=== PATIENT | female | born 1950 | race Caucasian/White ===

== ENCOUNTER 2020-08-15 18:08 | Inpatient (IN) | payer BC, OTHER ==
[~2020-08-15] VITALS: Ht 170.2 cm; Wt 59.4 kg
[2020-08-15] MEDS ORDERED: OLANZAPINE 10 MG VIAL IM ONE ×3 (18:15→21:15)
--- NOTE | 2020-08-15 18:19 | NUR ---
"141A with nurse Zaida assigned for this patient." per MHU staff Clare.
--- NOTE | 2020-08-15 18:47 | NUR ---
PT WAS EVALUATED BY DR ESQUIVEL.
--- NOTE | 2020-08-15 20:33 | NUR ---
Report given to Manjit SUNG
[2020-08-15] MEDS ORDERED: MAGNESIUM HYDROXIDE 30 ML LIQUID UDC PO PRN (21:15)
[2020-08-15] MEDS ORDERED: MAG HYDROX/AL HYDROX/SIMETH 30 ML LIQUID UDC PO PRN (21:15)
[2020-08-15] MEDS ORDERED: [UNRECOGNIZED DRUG - OTHER] (21:30)
[2020-08-15] MEDS ORDERED: no home meds (21:30)
--- NOTE | 2020-08-15 21:30 | NUR ---
Admission procedures done; kept safe and comfortable;
--- NOTE | 2020-08-15 22:00 | NUR ---
Jen has been very agitated; Zyprexa given IM to her as one time order; safety maintained.
[2020-08-16] MEDS: LORAZEPAM 1 MG TABLET PO PRN ×2 (04:51→20:14)
--- NOTE | 2020-08-16 05:23 | NUR ---
pt woke up and went to bathroom with assist; pt appears anxious; ativan 0.5 mg given PO; continue to monitor;
--- NOTE | 2020-08-16 05:28 | NUR ---
Slept 4 hours without interruption.
[2020-08-16 07:30] VITALS: BP 153/83
[2020-08-16 08:11] LABS: BILIRUBIN,TOTAL 0.7 mg/dL (0.2-1.0); POTASSIUM 3.8 mmol/L (3.5-5.1); TOTAL PROTEIN, SERUM 7.4 g/dL (6.4-8.2)
[2020-08-16] MEDS ORDERED: OLANZAPINE 5 MG TABLET PO PRN (12:00)
[2020-08-16] MEDS ORDERED: OLANZAPINE 10 MG VIAL IM ONE (14:15)
--- NOTE | 2020-08-16 14:30 | NUR ---
PATIENT BECAME RESTLESS AND TRIED TO GET OUT OF RADHA-CHAIR. TRIED TO WALK PT TO THE BATHROOM, THREE PERSON ASSIST. PT TRIED TO SWING AT STAFF WHILE ASSISTING HER TO THE BATHROOM. CONTACTED DR. MCCLELLAN FOR CHEMICAL RESTRAINT. DR. MCCLELLAN ORDERED ZYPREXA 5MG IM ONE TIME DOSE. ADMINISTERED DOSE. PUT PATIENT BACK TO RADHA-CHAIR. WILL CONTINUE TO MONITOR.
[2020-08-16 17:04] LABS: BASOPHILS % (AUTO) 0.4 % (0.0-2.0); EOSINOPHILS % (AUTO) 0.1 % (0.0-7.0); HEMOGLOBIN 15.6 g/dL (10.9-14.3); LYMPHOCYTES # (AUTO) 1.7 K/uL (20.0-40.0); LYMPHOCYTES % (AUTO) 18.7 % (20.5-51.5); MEAN CORPUSCULAR HEMOGLOBIN 29.9 uug (24.7-32.8); MEAN CORPUSCULAR HGB CONC 34 g/dL (32.3-35.6); MEAN CORPUSCULAR VOLUME 88.2 fL (75.5-95.3); MONOCYTES # (AUTO) 0.8 K/uL (2.0-10.0); MONOCYTES % (AUTO) 8.3 % (0.0-11.0); NEUTROPHILS # (AUTO) 6.7 K/uL (1.8-8.9); NEUTROPHILS % (AUTO) 72.5 % (38.5-71.5); PLATELET COUNT (AUTO) 325 K/uL (179-408); RED BLOOD CELL COUNT(AUTO) 5.21 MIL/uL (3.63-4.92); WHITE BLOOD COUNT (AUTO) 9.2 K/uL (3.8-11.8)
[2020-08-16 20:00] VITALS: BP 100/68
--- NOTE | 2020-08-16 20:00 | NUR ---
received patient in the hallway. She is sitting in a nkechi chair near the nursing station. She is noted A/o x 1 (name only) confused, restless, tangental. she is unable to have a meaningful conversation with this marketing copywriter. patient was given Ativan 1mg PO PRN for anxiety and agitation. V/S stable. She is reassured for her safety. safety and fall precaution in place. will continue to monitor.
[2020-08-16] MEDS ORDERED: OLANZAPINE 2.5 MG TABLET PO SCH (21:00)
[2020-08-16] MEDS ORDERED: DIVALPROEX SPRINKLE 125 MG CAP.SPRINK PO SCH (21:00)
--- NOTE | 2020-08-16 22:30 | NUR ---
Attempted to put patient in her bed. She became restless, hyperverbal, unable to stay in bed. She agreed to sit on a taylor chair. She was given Restoril 7.5 mg PO PRN. will continue to monitor.
[2020-08-16] MEDS: TEMAZEPAM 7.5 MG CAPSULE PO PRN (22:55)
[2020-08-17] MEDS: LORAZEPAM 1 MG TABLET PO PRN ×2 (03:49→20:47)
--- NOTE | 2020-08-17 07:05 | NUR ---
patient slept for approx. 5 hrs through the night. she wax noted less combative less irritable. will continue to monitor
[2020-08-17 07:30] VITALS: BP 139/79
--- NOTE | 2020-08-17 12:31 | NUR ---
Pt still sleeping. Pt arousable by touch. Held Zyprexa for sedation.
[2020-08-17] MEDS ORDERED: OLANZAPINE 2.5 MG TABLET PO SCH (13:00)
[2020-08-17] MEDS ORDERED: BENZTROPINE MESYLATE 2 MG/2 ML AMPUL IM ONE (15:00)
[2020-08-17] MEDS ORDERED: HALOPERIDOL LACTATE 5 MG/1 ML VIAL IM ONE (15:00)
[2020-08-17] MEDS ORDERED: LORAZEPAM 2 MG/1 ML VIAL IM ONE (15:00)
--- NOTE | 2020-08-17 15:00 | NUR ---
Pt awaken. Pt started walking in hallway. Pt was incontinent of urine and diaper was wet. MICA SPREADER attempted to clean pt up and change diaper. pt became combative attempting to hit staff, yelling at top of her voice. Pt delirous confused and disoriented. Attempted to decerlate situation but unsuccessfu reoriented pt to time and place unsuccessful. Pt behavior unchanged. Called dr murray and notified of behavior. New orders received and carried out. Will monitor patient.
--- NOTE | 2020-08-17 16:00 | NUR ---
VSS 110/76-hr 91- t 97.1- resp 18. Pt on Kacy Chair and eating pt much calmer after injections ordered given @ 1505. Pt ate about 15% of her snacks and water given. NO coughing noted. No aspiration noted.
[2020-08-17 16:11] VITALS: BP 110/76
[2020-08-17] MEDS ORDERED: OLANZAPINE 5 MG TABLET PO SCH ×2 (17:00→20:00)
--- NOTE | 2020-08-17 18:26 | NUR ---
UA received and sent to lab.
[2020-08-17 18:41] LABS: *BILIRUBIN,URIN 1+ (NEGATIVE); *BLOOD, URINE NEGATIVE (NEGATIVE); *CLARITY,URINE CLEAR (CLEAR); *COLOR,URINE YELLOW (YELLOW); *KETONES,URINE TRACE (NEGATIVE); *UROBILINOGEN,URINE 0.2 E.U./dl (NORMAL); LEUKOCYTE ESTERASE ,URINE NEGATIVE (NEGATIVE); NITRITE, URINE NEGATIVE (NEGATIVE); PH,URINE 5.5 (5.0-8.0); UGLUCOSE NEGATIVE (NEGATIVE)
--- NOTE | 2020-08-17 20:00 | NUR ---
Received patient in the hallway sitting in a nkechi chair. she is noted confused, disorganized speech, restless. Affect is flat, mood is irritable. She is noted with impaired judgment and insight into her admission to MHU. patient is unable to have a meaningful conversation with this magazine writer. Patient was able to comply with [facility] medication at this time. sacks and PO fluids were given to patient. She is reassured for for her safety. safety and fall precaution in place. V/S stable at this time. will continue to monitor.
[2020-08-17 20:07] VITALS: BP 132/72
--- NOTE | 2020-08-17 20:48 | NUR ---
Patient continue restless, banging table, unable to redirect. pt is hard to redirect. She is confused, unable to have a meaningful conversation with this life insurance underwriter. Ativan 1mg PO PRN given. will continue to monitor.
[2020-08-17] MEDS: ACETAMINOPHEN 325 MG TABLET PO PRN (22:56)
[2020-08-17] MEDS: TEMAZEPAM 7.5 MG CAPSULE PO PRN (23:46)
[2020-08-18] MEDS: LORAZEPAM 1 MG TABLET PO PRN ×2 (03:02→11:08)
[2020-08-18 06:59] LABS: BASOPHILS % (AUTO) 0.4 % (0.0-2.0); EOSINOPHILS % (AUTO) 0.3 % (0.0-7.0); HEMATOCRIT 42.8 % (31.2-41.9); HEMOGLOBIN 14.6 g/dL (10.9-14.3); LYMPHOCYTES # (AUTO) 1.2 K/uL (20.0-40.0); LYMPHOCYTES % (AUTO) 17.6 % (20.5-51.5); MEAN CORPUSCULAR HEMOGLOBIN 30.3 uug (24.7-32.8); MEAN CORPUSCULAR HGB CONC 34 g/dL (32.3-35.6); MEAN CORPUSCULAR VOLUME 88.7 fL (75.5-95.3); MONOCYTES # (AUTO) 0.6 K/uL (2.0-10.0); MONOCYTES % (AUTO) 9.3 % (0.0-11.0); NEUTROPHILS % (AUTO) 72.4 % (38.5-71.5); PLATELET COUNT (AUTO) 293 K/uL (179-408); RED BLOOD CELL COUNT(AUTO) 4.83 MIL/uL (3.63-4.92); WHITE BLOOD COUNT (AUTO) 6.9 K/uL (3.8-11.8)
[2020-08-18 07:16] LABS: BILIRUBIN,TOTAL 0.6 mg/dL (0.2-1.0); CREATININE 1.1 mg/dL (0.6-1.3); POTASSIUM 4.1 mmol/L (3.5-5.1); TOTAL PROTEIN, SERUM 7.6 g/dL (6.4-8.2)
[2020-08-18 07:30] VITALS: BP 162/73
[2020-08-18] MEDS ORDERED: OLANZAPINE 2.5 MG TABLET PO SCH (08:00)
[2020-08-18] MEDS: OLANZAPINE 5 MG TABLET PO SCH ×3 (08:12→20:07)
--- NOTE | 2020-08-18 10:21 | NUR ---
REMY Initial Discharge Plan: Patient is currently homeless with a friend living out of a truck camper, Nick ([phone]). Patient will return to their camper vehicle upon discharge. Patient's brother Earnest ([phone]) is also involved in the patient's care. REMY will continue to work with patient, family, and MD to ensure a safe and proper discharge plan.
[2020-08-18 10:25] VITALS: BP 142/72
--- NOTE | 2020-08-18 10:29 | NUR ---
Firearms Report: Director Of Automation completed and submitted a DOJ firearms report for 5150 grave disability certifications. A copy of report has been placed in patient chart.
--- NOTE | 2020-08-18 10:48 | NUR ---
REMY Family Contact: REMY spoke with patient's friend Nick ([phone]) and discussed treatment and discharge plan. Nick provided collateral information (see sw's assessment). Nick stated he will pecan picker the patient upon discharge. REMY also spoke with patient's brother, Earnest ([phone]) who is also involved in the patient's treatment and discharge plan. Earnest confirmed patient lives with a truck camper with Nick. Earnest stated he helps with the patient's finances and takes the patient to the bank.
--- NOTE | 2020-08-18 11:10 | NUR ---
UR NOTE: Auth: [id number] SW called and left a voicemail and faxed patient's clinicals to Vp Analysis Andria ( ) from [facility]: [facility].
[2020-08-18 15:25] VITALS: BP 169/73
[2020-08-18] MEDS: OXCARBAZEPINE 300 MG TABLET PO SCH (16:10)
[2020-08-18 16:41] VITALS: BP 130/69
--- NOTE | 2020-08-19 05:55 | NUR ---
GPS: Remain uncooperative with care.compliant with meds. occ banging table, unable to redirect. pt is hard to redirect. confused, unable to have a meaningful conversation with this staff. slept 4 hrs through the night. will continue to monitor.
[2020-08-19 07:30] VITALS: BP 141/76
[2020-08-19] MEDS: LORAZEPAM 1 MG TABLET PO PRN ×2 (07:48→17:45)
[2020-08-19] MEDS: OLANZAPINE 5 MG TABLET PO SCH ×3 (07:54→20:47)
[2020-08-19] MEDS: OXCARBAZEPINE 300 MG TABLET PO SCH ×2 (08:03→17:45)
--- NOTE | 2020-08-19 14:29 | NUR ---
UR NOTE: Auth: [id number] REMY spoke with Marketing Co Op Andria ( ) from [facility] and confirmed patient's authorization. Andria stated she only requires clinicals faxed two times a week. Review clinicals due .
--- NOTE | 2020-08-19 15:16 | NUR ---
patient is alert to name only. she is aggressive, combative, and resistive to care. patient speaks to herself and unknown others. she is unable to maintain linear and logical conversation, unable to answer staff questions. patient just sits and speaks and mumbles to herself. patient is adherent with medication after multiple attempts at prompting and education. patient is unable to participate in unit groups and milieu. patient instructed to communicate her needs appropriately and educated about impulse control, but unable to participate and verbalize understanding.
[2020-08-19 16:00] VITALS: BP 136/87
[2020-08-19 20:29] VITALS: BP 140/91
[2020-08-19] MEDS: ATORVASTATIN 20 MG TABLET PO SCH (20:47)
[2020-08-19] MEDS: ACETAMINOPHEN 325 MG TABLET PO PRN (20:47)
[2020-08-19] MEDS: TEMAZEPAM 7.5 MG CAPSULE PO PRN (21:41)
[2020-08-20] MEDS: LORAZEPAM 1 MG TABLET PO PRN ×4 (00:20→23:30)
--- NOTE | 2020-08-20 05:46 | NUR ---
Received patient in the Kacy chair, banging on the table. Straight Pin Making Machine Operator attempted to redirect and reorient patient but patient is confused and unable to engage in any conversation or answer any questions. When assisted to the bathroom, it required multiple staff members, patient was combative and unsteady. A snack was provided as well as fluid, maximum assistance needed with oral intake .Patient was given PM care and put in bed. Bed alarm on. Total sleep hours so far is 5.15. Patient turned and repositioned for comfort. Continuing to monitor for safety and behavior escalation. No acute distress noted at this time.
[2020-08-20 06:53] LABS: BASOPHILS % (AUTO) 0.4 % (0.0-2.0); EOSINOPHILS # (AUTO) 0.1 K/uL (0.0-0.7); HEMATOCRIT 41.2 % (31.2-41.9); HEMOGLOBIN 13.9 g/dL (10.9-14.3); LYMPHOCYTES % (AUTO) 36.7 % (20.5-51.5); MEAN CORPUSCULAR HEMOGLOBIN 30.1 uug (24.7-32.8); MEAN CORPUSCULAR HGB CONC 34 g/dL (32.3-35.6); MEAN CORPUSCULAR VOLUME 89.1 fL (75.5-95.3); MONOCYTES # (AUTO) 0.5 K/uL (2.0-10.0); MONOCYTES % (AUTO) 9.1 % (0.0-11.0); NEUTROPHILS # (AUTO) 2.8 K/uL (1.8-8.9); NEUTROPHILS % (AUTO) 52.8 % (38.5-71.5); PLATELET COUNT (AUTO) 272 K/uL (179-408); RED BLOOD CELL COUNT(AUTO) 4.63 MIL/uL (3.63-4.92); WHITE BLOOD COUNT (AUTO) 5.4 K/uL (3.8-11.8)
[2020-08-20 07:04] LABS: BILIRUBIN,TOTAL 0.7 mg/dL (0.2-1.0); MAGNESIUM 2.4 mg/dL (1.8-2.4); POTASSIUM 4.4 mmol/L (3.5-5.1); TOTAL PROTEIN, SERUM 7.2 g/dL (6.4-8.2)
[2020-08-20 07:30] VITALS: BP 130/77
[2020-08-20] MEDS: OXCARBAZEPINE 300 MG TABLET PO SCH ×3 (08:09→16:35)
[2020-08-20] MEDS: OLANZAPINE 5 MG TABLET PO SCH ×3 (08:09→20:25)
--- NOTE | 2020-08-20 12:08 | NUR ---
REMY PC Hearing: Patient had 5250 probable cause hearing today and it was upheld for grave disability and danger to self.
--- NOTE | 2020-08-20 12:35 | NUR ---
REMY Family Contact: REMY also spoke with patient's brother, Earnest ([phone]) and discussed discharge plan for possible board and care facility. REMY sent patient referral to [facility] board and care data coordinator ([phone]) and she will be speaking with Earnest for further assessment.
[2020-08-20] MEDS: ENSURE ENLIVE (VAN) 240 ML LIQUID PO SCH ×2 (13:00→16:36)
--- NOTE | 2020-08-20 14:29 | NUR ---
Board and Care Placement: SW received call back from [facility] medical records coordinator ([phone]) who stated patient is accepted at [facility] board and care [address] [place] [phone] ([phone]).
[2020-08-20 16:09] VITALS: BP 144/84
[2020-08-20] MEDS: ATORVASTATIN 20 MG TABLET PO SCH (20:24)
[2020-08-20 21:02] VITALS: BP 128/77
--- NOTE | 2020-08-20 21:04 | NUR ---
PATIENT RECEIVED UP IN RADHA CHAIR. PATIENT ALERT/ORIENTED X1 WITH CONFUSION, DISORGANIZED, AND DISORIENTED. PATIENT COMPLAINT WITH MEDICATION. PATIENT IN NO APPARENT DISTRESS AND NO AGGRESSIVE BEHAVIOR NOTED. PATIENT IS EASILY IRRITABLE AND AGITATED. SAFE ENVIRONMENT PROVIDED, FREQUENT ROUNDING, AND CLUTTER FREE ENVIRONMENT. BED IN LOWEST POSITION, BED LOCKED, AND BED ALARM ON WHILE IN BED.
[2020-08-20] MEDS: TEMAZEPAM 7.5 MG CAPSULE PO PRN (22:15)
[2020-08-21 07:30] VITALS: BP 141/78
[2020-08-21] MEDS: ENSURE ENLIVE (VAN) 240 ML LIQUID PO SCH ×3 (09:00→17:36)
[2020-08-21] MEDS: OXCARBAZEPINE 300 MG TABLET PO SCH ×3 (09:00→17:34)
[2020-08-21] MEDS ORDERED: BENZTROPINE MESYLATE 2 MG/2 ML AMPUL IM ONE (09:20)
[2020-08-21] MEDS ORDERED: HALOPERIDOL LACTATE 5 MG/1 ML VIAL IM ONE (09:20)
[2020-08-21] MEDS ORDERED: LORAZEPAM 2 MG/1 ML VIAL IM ONE (09:20)
--- NOTE | 2020-08-21 09:30 | NUR ---
Gps/Ophthalmic Technician Apprentice- Patient was agitated, restless, disrobing , hitting staff during her care, unable to co contract for safety, confused, fidgety , assisted to eat breakfast, refused. Dr Preston was called by Form GraderSelena Montero, orders received.
--- NOTE | 2020-08-21 09:30 | NUR ---
PATIENT AGGRESSIVE,HITTING STAFF, BANGING HER TABLE, PATIENT UNABLE TO CONTRACT SAFETY, UNABLE TO REDIRECT PATIENT CONFUSED AND DISORIENTED WITH POOR INSIGHT, CALLED DR. MCCLELLAN REGARDING PATIENTS BEHAVIOR, WITH EMERGENCY MEDICATION ORDER , HALDOL 5MG, COGENTIN 1MG, AND ATIVAN 2MG TO BE GIVEN IM , PATIENT TOLERATED THE MEDICATION, MONITORED FOR SAFETY
--- NOTE | 2020-08-21 10:30 | NUR ---
Gps/Marketing Technology Specialist- Patient's boyfriend called , verbalized frustration, that every time he called patient appeared to be sleeping all the time. Claimed he is working on trying to moved patient out of here. Instructed to talked to the Nursing Admin .
--- NOTE | 2020-08-21 10:50 | NUR ---
UR NOTE: Auth: [id number] REMY faxed patient's clinicals to Software Quality Specialist Andria ( ) from [facility].
[2020-08-21 16:00] VITALS: BP 135/81
[2020-08-21] MEDS ORDERED: HALOPERIDOL LACTATE 10 MG/5 ML ORAL SOLUTION UDC PO SCH (17:00)
[2020-08-21] MEDS: HALOPERIDOL LACTATE 10 MG/5 ML ORAL SOLUTION UDC PO SCH ×2 (17:33→21:12)
[2020-08-21] MEDS: LORAZEPAM 0.5 MG TABLET PO SCH ×2 (17:35→21:11)
[2020-08-21] MEDS: BENZTROPINE MESYLATE 0.5 MG TABLET PO SCH (17:35)
--- NOTE | 2020-08-21 18:10 | NUR ---
Gps/Production Statistical Clerk- Kept patient by the Nurses station for safety, patient gets restless, fidgety, tends to disrobed , hitting table with her fist., discouraged from doing so. Assisted with her meals. , poor intake, offered fluids.
[2020-08-21 20:07] VITALS: BP 128/77
[2020-08-21] MEDS: ATORVASTATIN 20 MG TABLET PO SCH (21:12)
[2020-08-22] MEDS: TEMAZEPAM 7.5 MG CAPSULE PO PRN ×2 (01:17→22:43)
[2020-08-22] MEDS: LORAZEPAM 1 MG TABLET PO PRN (04:33)
--- NOTE | 2020-08-22 05:52 | NUR ---
Jen slept 4.3 hours; periods of agitation; banging on taylor chair; ativan given; able to ta ke meds with ice cream; safety maintained; needs attended.
[2020-08-22 07:30] VITALS: BP 156/89
[2020-08-22] MEDS: LORAZEPAM 0.5 MG TABLET PO SCH ×4 (08:00→21:00)
[2020-08-22] MEDS: HALOPERIDOL LACTATE 10 MG/5 ML ORAL SOLUTION UDC PO SCH ×4 (08:00→21:00)
[2020-08-22] MEDS: BENZTROPINE MESYLATE 0.5 MG TABLET PO SCH ×3 (09:00→17:00)
[2020-08-22] MEDS: OXCARBAZEPINE 300 MG TABLET PO SCH (09:00)
[2020-08-22] MEDS: ENSURE ENLIVE (VAN) 240 ML LIQUID PO SCH ×3 (09:00→17:00)
[2020-08-22] MEDS ORDERED: LORAZEPAM 2 MG/1 ML VIAL IM ONE (09:30)
[2020-08-22] MEDS ORDERED: HALOPERIDOL LACTATE 5 MG/1 ML VIAL IM ONE (09:30)
[2020-08-22] MEDS ORDERED: BENZTROPINE MESYLATE 2 MG/2 ML AMPUL IM ONE (09:30)
--- NOTE | 2020-08-22 09:30 | NUR ---
Gps/Chief Pharmacist-started to get agitated, hitting table, sliding off her chair, agitated, disrobing , refusing to take po. meds, refusing breakfast, yelling. .Curb SupervisorSelena Montero called Psychiatrist , orders received.
[2020-08-22 13:12] LABS: POTASSIUM 4.4 mmol/L (3.5-5.1)
[2020-08-22 13:18] LABS: BILIRUBIN,TOTAL 0.6 mg/dL (0.2-1.0); MAGNESIUM 2.6 mg/dL (1.8-2.4); TOTAL PROTEIN, SERUM 8.1 g/dL (6.4-8.2)
[2020-08-22 13:21] LABS: BASOPHILS % (AUTO) 0.4 % (0.0-2.0); EOSINOPHILS % (AUTO) 0.1 % (0.0-7.0); HEMATOCRIT 46.1 % (31.2-41.9); HEMOGLOBIN 15.5 g/dL (10.9-14.3); LYMPHOCYTES % (AUTO) 10.7 % (20.5-51.5); MEAN CORPUSCULAR HEMOGLOBIN 29.9 uug (24.7-32.8); MEAN CORPUSCULAR HGB CONC 34 g/dL (32.3-35.6); MEAN CORPUSCULAR VOLUME 88.9 fL (75.5-95.3); MONOCYTES # (AUTO) 0.7 K/uL (2.0-10.0); MONOCYTES % (AUTO) 7.7 % (0.0-11.0); NEUTROPHILS # (AUTO) 7.4 K/uL (1.8-8.9); NEUTROPHILS % (AUTO) 81.1 % (38.5-71.5); PLATELET COUNT (AUTO) 309 K/uL (179-408); RED BLOOD CELL COUNT(AUTO) 5.19 MIL/uL (3.63-4.92); WHITE BLOOD COUNT (AUTO) 9.1 K/uL (3.8-11.8)
--- NOTE | 2020-08-22 14:22 | NUR ---
REMY [facility] Report: Thank you for submitting a Protective Services Report. Your report (Intake ID [id number]) was successfully submitted on 08/22/2020 at 2:22 PM. Addendum: 08/22/20 at 1424 by MYRIAM ROSARIO A copy of the report has been placed in the patient's chart.
--- NOTE | 2020-08-22 14:30 | NUR ---
Gps/Custom Bow Maker-Sleeping , remains up in her taylor-chair, awakened couple of times to be fed, patient was fidgety and uncooperative .
[2020-08-22 15:02] VITALS: BP 98/78
--- NOTE | 2020-08-22 15:56 | NUR ---
Gps/Cell Maker- Remains up on her taylor-chair, observed restlessness, fluids offered, assisted with her meals , patient refused. Continue to monitor patient , safety emphasized .
--- NOTE | 2020-08-22 17:00 | NUR ---
Gps/environmental test technician- Toileted, 3 staff assisting , uncooperative during her care, refusing to stand up, does not follow simple directions. Rigt elbow abrasion, cleansed redressed, , pt. kept removing , rubbing off from the tray .
[2020-08-22 20:09] VITALS: BP 134/83
[2020-08-22] MEDS: ATORVASTATIN 20 MG TABLET PO SCH (21:00)
--- NOTE | 2020-08-23 05:45 | NUR ---
GPS: Remain confused and disoriented. patient slept for approx. 5.15 hrs through the night after sleeping meds given. patient noted less combative less irritable. resting in bed comfortably. will continue to monitor
[2020-08-23 07:30] VITALS: BP 115/50
--- NOTE | 2020-08-23 07:30 | NUR ---
Received patient in the Kacy chair close to the nursing station for safety. Patient is alert and oriented times 1. Patient responsive to name only. Patient is confused and disoriented to time and place. Compliant with medications. Patient is easily irritable and gets agitated. Needs complete assistance with ADLs. Safety precautions are in place. Will continue to monitor.
[2020-08-23] MEDS: HALOPERIDOL LACTATE 10 MG/5 ML ORAL SOLUTION UDC PO SCH ×4 (08:33→20:19)
[2020-08-23] MEDS: LORAZEPAM 0.5 MG TABLET PO SCH ×4 (08:33→20:19)
[2020-08-23] MEDS: ENSURE ENLIVE (VAN) 240 ML LIQUID PO SCH ×3 (08:36→17:12)
[2020-08-23] MEDS: BENZTROPINE MESYLATE 0.5 MG TABLET PO SCH ×3 (08:36→17:11)
[2020-08-23 16:00] VITALS: BP 140/93
[2020-08-23] MEDS: busPIRone 5 MG TABLET PO SCH ×2 (17:11→20:19)
[2020-08-23 20:00] VITALS: BP 140/77
[2020-08-23] MEDS: ATORVASTATIN 20 MG TABLET PO SCH (20:19)
[2020-08-24] MEDS: LORAZEPAM 1 MG TABLET PO PRN ×2 (05:16→18:54)
--- NOTE | 2020-08-24 05:21 | NUR ---
GPS: Gps/Evp Operations- Patient sitting up in taylor chair become agitated, hitting table, sliding off her chair, disrobing , ativan 1 mg po given for agitation.
--- NOTE | 2020-08-24 06:13 | NUR ---
GPS: Remain confused and disoriented. patient slept for approx. 4.45 hrs through the night . patient noted combative irritable. ativan 1 mg po given and effective.assisted with shower this morning. patient resting in taylor chair near nursing station. will continue to monitor
[2020-08-24 07:30] VITALS: BP 125/89
[2020-08-24] MEDS: ACETAMINOPHEN 325 MG TABLET PO PRN ×2 (08:02→18:54)
[2020-08-24] MEDS: LORAZEPAM 0.5 MG TABLET PO SCH (08:17)
[2020-08-24] MEDS: BENZTROPINE MESYLATE 0.5 MG TABLET PO SCH ×3 (08:17→16:22)
[2020-08-24] MEDS: busPIRone 5 MG TABLET PO SCH ×4 (08:17→20:21)
[2020-08-24] MEDS: HALOPERIDOL LACTATE 10 MG/5 ML ORAL SOLUTION UDC PO SCH ×4 (08:17→20:21)
[2020-08-24] MEDS: ENSURE ENLIVE (VAN) 240 ML LIQUID PO SCH ×3 (08:18→16:23)
[2020-08-24 13:07] LABS: BASOPHILS % (AUTO) 0.4 % (0.0-2.0); EOSINOPHILS % (AUTO) 0.1 % (0.0-7.0); HEMATOCRIT 47.6 % (31.2-41.9); LYMPHOCYTES # (AUTO) 1.3 K/uL (20.0-40.0); LYMPHOCYTES % (AUTO) 12.7 % (20.5-51.5); MEAN CORPUSCULAR HEMOGLOBIN 30.3 uug (24.7-32.8); MEAN CORPUSCULAR HGB CONC 34 g/dL (32.3-35.6); MEAN CORPUSCULAR VOLUME 90.1 fL (75.5-95.3); MONOCYTES # (AUTO) 0.7 K/uL (2.0-10.0); MONOCYTES % (AUTO) 6.7 % (0.0-11.0); NEUTROPHILS % (AUTO) 80.1 % (38.5-71.5); PLATELET COUNT (AUTO) 328 K/uL (179-408); RED BLOOD CELL COUNT(AUTO) 5.29 MIL/uL (3.63-4.92)
[2020-08-24 13:16] LABS: ALANINE AMINOTRANSFERASE 61 U/L (14-59); ALKALINE PHOSPHATASE 109 U/L (50-136); ASPARTATE AMINOTRANSFERASE 67 U/L (15-37); BILIRUBIN,TOTAL 0.4 mg/dL (0.2-1.0); CARBON DIOXIDE 31 mmol/L (21-32); CHLORIDE 112 mmol/L (98-107); CREATININE 1.2 mg/dL (0.6-1.3); GLUCOSE 149 mg/dL (74-106); MAGNESIUM 2.8 mg/dL (1.8-2.4); POTASSIUM 4.5 mmol/L (3.5-5.1); UREA NITROGEN, BLOOD 44 mg/dL (7-18)
[2020-08-24 16:00] VITALS: BP 111/69
[2020-08-24] MEDS ORDERED: IV NS 1000 ML 1,000 ML IV ONE (19:15)
--- NOTE | 2020-08-24 20:00 | NUR ---
RECEIVED PATIENT IN THE HALLWAY SITTING IN A STACIE CHAIR. SHE IS NOTED A/O X 1 (NAME) SHE IS NOTED RESTLESS. SHE IS UNABLE TO HAVE A MEANINGFUL CONVERSATION WITH THIS SUBEDITOR. PT REQUIRED CONSTANT OBSERVATION AND REASSURANCE. SAFETY AND FAL PRECAUTION IN PLACE. V/S STABLE. WILL CONTINUE TO MONITOR.
[2020-08-24 20:05] VITALS: BP 118/66
[2020-08-24] MEDS: ATORVASTATIN 20 MG TABLET PO SCH (20:21)
--- NOTE | 2020-08-24 21:30 | NUR ---
NURSE'S NOTE: STARTED IV 22 GAUGE INSERTED ON LEFT FOREARM. PT TOLERATED WELL. 1000ML NS FLUID RUNNING AT 150ML/HRS ONE TIME ONLY. WILL CONTINUE TO MONITOR.
[2020-08-24] MEDS: TEMAZEPAM 7.5 MG CAPSULE PO PRN (22:12)
[2020-08-25] MEDS: LORAZEPAM 1 MG TABLET PO PRN ×2 (01:02→07:38)
[2020-08-25 05:32] LABS: *BILIRUBIN,URIN NEGATIVE (NEGATIVE); *BLOOD, URINE NEGATIVE (NEGATIVE); *CLARITY,URINE CLEAR (CLEAR); *COLOR,URINE YELLOW (YELLOW); *KETONES,URINE NEGATIVE (NEGATIVE); *UROBILINOGEN,URINE 0.2 E.U./dl (NORMAL); LEUKOCYTE ESTERASE ,URINE NEGATIVE (NEGATIVE); NITRITE, URINE NEGATIVE (NEGATIVE); PH,URINE 5.5 (5.0-8.0); UGLUCOSE NEGATIVE (NEGATIVE)
[2020-08-25 06:04] LABS: BACTERIA,URINE FEW /HPF (NONE SEEN); MUCUS,URINE FEW /LPF (0-FEW); SQUAMOUS EPITHELIAL CELL,UR FEW /HPF (NONE SEEN); URINE AMORPHOUS URATE FEW /HPF
--- NOTE | 2020-08-25 07:18 | NUR ---
patient slept for approx 1 hrs through the night. Straight catheterization (in-and out) done 150ml came out. specimen sent to lab for UA and C&S. saline lock on left forearm, patent and intact. patient also had one wet diaper. will continue to monitor.
[2020-08-25 07:30] VITALS: BP 158/77
[2020-08-25] MEDS: ACETAMINOPHEN 325 MG TABLET PO PRN (07:37)
[2020-08-25 07:44] LABS: CREATININE 1.2 mg/dL (0.6-1.3); POTASSIUM 3.8 mmol/L (3.5-5.1)
[2020-08-25] MEDS: busPIRone 5 MG TABLET PO SCH ×3 (08:17→17:21)
[2020-08-25] MEDS: BENZTROPINE MESYLATE 0.5 MG TABLET PO SCH ×3 (08:17→17:21)
[2020-08-25] MEDS: HALOPERIDOL LACTATE 10 MG/5 ML ORAL SOLUTION UDC PO SCH ×4 (08:17→20:14)
[2020-08-25] MEDS: ENSURE ENLIVE (VAN) 240 ML LIQUID PO SCH ×3 (08:18→17:22)
[2020-08-25] MEDS: QUETIAPINE FUMARATE 25 MG TABLET PO PRN (11:07)
[2020-08-25] MEDS: QUETIAPINE FUMARATE 25 MG TABLET PO SCH ×2 (12:30→17:21)
[2020-08-25 15:26] VITALS: BP 125/79
[2020-08-25 20:15] VITALS: BP 152/72
[2020-08-25] MEDS: ATORVASTATIN 20 MG TABLET PO SCH (20:15)
[2020-08-25] MEDS ORDERED: QUETIAPINE FUMARATE 25 MG TABLET PO SCH (21:00)
--- NOTE | 2020-08-25 21:00 | NUR ---
RECEIVED PATIENT IN THE HALLWAY SITTING IN A RADHA CHAIR CLOSE TO THE NURSING STATION.. SHE IS NOTED SLEEPING BUT EASILY AROUSABLE. PATIENT IS CONFUSED, POOR HISTORIAN, UNABLE TO HAVE A MEANINGUL CONVERSATION WITH THIS CODING COORDINATOR. PATIENT IS ABLE TO COMPLY WITH MEDICATION REGIEMNT AT THIS TIME. SAFETY AND FALL PRECAUTION IN [place]. V/S STABLE. SALINE LOCK 22G ON LEFT FOREARM IS PATENT AND INTACT. WILL CONTINUE TO MONITOR.
[2020-08-26 07:30] VITALS: BP 143/60
[2020-08-26] MEDS: QUETIAPINE FUMARATE 25 MG TABLET PO PRN (07:37)
[2020-08-26 07:51] LABS: BASOPHILS % (AUTO) 0.3 % (0.0-2.0); EOSINOPHILS % (AUTO) 0.3 % (0.0-7.0); HEMATOCRIT 44.9 % (31.2-41.9); HEMOGLOBIN 14.8 g/dL (10.9-14.3); LYMPHOCYTES # (AUTO) 1.5 K/uL (20.0-40.0); LYMPHOCYTES % (AUTO) 16.8 % (20.5-51.5); MEAN CORPUSCULAR HEMOGLOBIN 29.9 uug (24.7-32.8); MEAN CORPUSCULAR HGB CONC 33 g/dL (32.3-35.6); MEAN CORPUSCULAR VOLUME 90.6 fL (75.5-95.3); MONOCYTES # (AUTO) 0.5 K/uL (2.0-10.0); MONOCYTES % (AUTO) 5.8 % (0.0-11.0); NEUTROPHILS # (AUTO) 6.7 K/uL (1.8-8.9); NEUTROPHILS % (AUTO) 76.8 % (38.5-71.5); PLATELET COUNT (AUTO) 249 K/uL (179-408); RED BLOOD CELL COUNT(AUTO) 4.95 MIL/uL (3.63-4.92); WHITE BLOOD COUNT (AUTO) 8.8 K/uL (3.8-11.8)
[2020-08-26 08:05] LABS: BILIRUBIN,TOTAL 0.4 mg/dL (0.2-1.0); CREATININE 1.1 mg/dL (0.6-1.3); POTASSIUM 3.9 mmol/L (3.5-5.1); TOTAL PROTEIN, SERUM 7.1 g/dL (6.4-8.2)
[2020-08-26] MEDS: BENZTROPINE MESYLATE 0.5 MG TABLET PO SCH ×2 (08:12→13:07)
[2020-08-26] MEDS: busPIRone 5 MG TABLET PO SCH ×2 (08:12→13:07)
[2020-08-26] MEDS: HALOPERIDOL LACTATE 10 MG/5 ML ORAL SOLUTION UDC PO SCH ×2 (08:12→13:07)
[2020-08-26] MEDS: ENSURE ENLIVE (VAN) 240 ML LIQUID PO SCH ×3 (08:13→17:27)
[2020-08-26] MEDS: QUETIAPINE FUMARATE 25 MG TABLET PO SCH ×2 (08:17→13:07)
--- NOTE | 2020-08-26 09:07 | NUR ---
UR NOTE: Auth: [id number] faxed Logging Rafter Laborer Andria ( ) from [facility]: [facility] patient's updated clinicals.
[2020-08-26] MEDS: ACETAMINOPHEN 325 MG TABLET PO PRN (10:42)
[2020-08-26] MEDS: LORAZEPAM 1 MG TABLET PO PRN ×2 (10:42→16:57)
[2020-08-26] MEDS ORDERED: OLANZAPINE ZYDIS 5 MG TAB.RAPDIS PO STA (11:37)
--- NOTE | 2020-08-26 14:47 | NUR ---
WOUND CARE CONSULT: PT SEEN FOR RT ELBOW ABRASION. RECOMMENDATIONS MADE FOR SKIN PROTECTION AND WOUND CARE. DR MAR FOLLOWING PT FOR RT FOOT BULLAE. ORDERS IN PLACE BY DR MAR FOR FOOT. DISCUSSED WITH NURSING STAFF. IN AGREEMENT WITH PLAN OF CARE.
[2020-08-26 16:00] VITALS: BP 129/70
[2020-08-26] MEDS ORDERED: ONDANSETRON 4 MG/2 ML VIAL IV PRN (16:15)
[2020-08-26] MEDS ORDERED: MORPHINE SULFATE 4 MG/1 ML DISP.SYRIN IV PRN (16:15)
[2020-08-26] MEDS ORDERED: IV D5W 1000ML 1,000 ML IV ONE (16:30)
[2020-08-26] MEDS ORDERED: QUETIAPINE FUMARATE 25 MG TABLET PO SCH ×2 (17:00→21:00)
--- NOTE | 2020-08-26 17:04 | NUR ---
GPS: Nursing Notes: Severe Agitation: Refusing Angio-Cath: Patient awake and restless, poor impulse control, banging on the table, resistant with nursing, unable to insert angiocatheter due to restless behavior, Ativan 1mg PO PRN given for agitation, HIDA consent unable to obtain due to mental status, informed Luisa HIDA Scan Tech. and Nolan Mederos, HYDRAULIC ASSEMBLER, per [place]ito HYDRAULIC ASSEMBLER, patient to be transfer to med. surg. with Dx: Hypernatremia and intractable pain, continue to monitor patient, informed charge nurse. Also, Dr. Preston was inform, to contnue with 5250 at the medical floor, continue with treatment plan.
--- NOTE | 2020-08-26 18:50 | NUR ---
GPS: Nursing Notes: Discharge to Med. Surg: Patient is awake and responding to her name, patient to be discharge to Med. Surg. room # 306, discharge to be complete by incoming shift nurse, continue with discharge plan, continue with treatment plan.
[2020-08-26 20:19] VITALS: BP 123/70
[2020-08-26] MEDS: ATORVASTATIN 20 MG TABLET PO SCH (20:24)
--- NOTE | 2020-08-26 21:11 | NUR ---
Patient was discharged to the medical floor under the care of Nolan Mederos NP. with discharged Dx of Hypernatremia and intractable pain. Per Dr Preston, patient will continue on a 5250 hold for GD and DTO. patient was discharged with all her belongings in stable condition. report given to Judson SUNG.
--- NOTE | 2020-08-27 11:45 | NUR ---
REMY GPS Transfer Note and Discharge Plan: Patient was discharged from MHU to the medical floor with diagnosis of Hypernatremia and intractable pain. Per Dr Preston, patient will remain a 5250 hold for GD and DTO. Patients discharge plan from the hospital is to [facility] [address] [facility] [address] ([phone]). [facility][phone][facility] will provide transportation for the patient upon discharge from the hospital. Patients friend, Nick ([phone]) and brother Earnest ([phone]) are both aware and agreeable with discharge plan. Patient presents alert and oriented x2 and is aware and agreeable with discharge plan. Patient denies suicidal or homicidal ideation. Patient presents with withdrawn mood and congruent affect. Patient is unable to provide care for herself however is willing to accept care provided for her at the facility. Patient will be following up with primary care physician Dr. Vivian Banuelos [address] [place] [address] ([phone]) at the facility and will be referred for psychiatrist follow up upon assessment. Primary physician will manage patients psychotropic medications. Patient will need to sign the homeless waiver upon discharge and provide a copy in the chart. Homeless resources must be provided including 211 information line for shelters and homeless resources. A copy of all resources given to patient also need to be placed in the chart.
--- NOTE | 2020-08-27 11:48 | NUR ---
UR NOTE: Auth: [id number] REMY left a message for Military Source Operations Specialist Andria ( ) from [facility]: [facility] regarding patient's discharge and transfer to medical floor. REMY provided case management phone number.
== END 2020-08-26 21:34 | disposition short-term general hospital (02) | DRG 885 ==
LOC: ER 18:08 → GPS 19:03
PROVIDERS: ADMIT Psychiatry & Neurology Psychosomatic Medicine; ATTEND Internal Medicine
PROC: 0HBRXZZ Excision of Toe Nail, External Approach (ICD-10-PCS; principal; 2020-08-26)
DX: F29 Unspecified psychosis not due to a substance or known physiological condition (principal); F01.50 Vascular dementia, unspecified severity, without behavioral disturbance, psychotic disturbance, mood disturbance, and anxiety; N17.0 Acute kidney failure with tubular necrosis; E87.0 Hyperosmolality and hypernatremia; Z59.0 Homelessness; B35.1 Tinea unguium; E78.5 Hyperlipidemia, unspecified; E83.41 Hypermagnesemia; F41.9 Anxiety disorder, unspecified; F25.9 Schizoaffective disorder, unspecified; R74.01 Elevation of levels of liver transaminase levels; R23.8 Other skin changes; F12.11 Cannabis abuse, in remission
CPT/HCPCS: 36415; 70450; 71046; 73501; 76700; 83605; 83735; 85025; 87086; A4663; J0515; J1630; J2060; J2358; J7030; J7070

== ENCOUNTER 2020-08-26 21:44 | Inpatient (IN) | payer BC ==
[~2020-08-26] VITALS: Ht 170.2 cm; Wt 59.0 kg
[~2020-08-26 21:44] MED LIST: no home meds
[2020-08-26] MEDS ORDERED: MORPHINE SULFATE 2 MG/1 ML DISP.SYRIN IV PRN (22:00)
[2020-08-26] MEDS ORDERED: Z GUARD REMEDY PASTE 57 GM TUBE TOP PRN (22:00)
[2020-08-26] MEDS ORDERED: MAGNESIUM HYDROXIDE 30 ML LIQUID UDC PO PRN (22:00)
[2020-08-26] MEDS ORDERED: ONDANSETRON 4 MG/2 ML VIAL IV PRN (22:00)
[2020-08-26] MEDS ORDERED: ACETAMINOPHEN 325 MG TABLET PO PRN (22:00)
[2020-08-26] MEDS ORDERED: ZOLPIDEM 5 MG TABLET PO PRN (22:00)
--- NOTE | 2020-08-26 22:15 | NUR ---
Admitted a 70 y/o female from MHU on 5249 hold with admitting diagnosis of hypernatremia, GB and CBD dilatation. Pt transferred to bed from taylor chair, positioned comfortably, safety measures initiated, with 1:1 sitter at bedside. Denies suicidal ideation, no s/s of acute distress, no pain or discomfort noted at this time. IV inserted on L forearm, patent and intact. D5W 1000ml started at 80mls/hr. Will continue to monitor.
[2020-08-26] MEDS: IV D5W 1000ML 1,000 ML IV PRN (22:43)
[2020-08-26 22:59] VITALS: BP 129/70
[2020-08-27 04:00] VITALS: BP 133/75
[2020-08-27] MEDS: LORAZEPAM 2 MG/1 ML VIAL IV PRN ×3 (04:59→22:18)
[2020-08-27 07:01] LABS: BASOPHILS % (AUTO) 0.3 % (0.0-2.0); EOSINOPHILS # (AUTO) 0.1 K/uL (0.0-0.7); EOSINOPHILS % (AUTO) 1.3 % (0.0-7.0); HEMATOCRIT 40.7 % (31.2-41.9); HEMOGLOBIN 13.3 g/dL (10.9-14.3); LYMPHOCYTES # (AUTO) 1.3 K/uL (20.0-40.0); LYMPHOCYTES % (AUTO) 19.6 % (20.5-51.5); MEAN CORPUSCULAR HEMOGLOBIN 29.6 uug (24.7-32.8); MEAN CORPUSCULAR HGB CONC 33 g/dL (32.3-35.6); MONOCYTES # (AUTO) 0.4 K/uL (2.0-10.0); MONOCYTES % (AUTO) 6.8 % (0.0-11.0); NEUTROPHILS # (AUTO) 4.7 K/uL (1.8-8.9); PLATELET COUNT (AUTO) 215 K/uL (179-408); RED BLOOD CELL COUNT(AUTO) 4.48 MIL/uL (3.63-4.92); WHITE BLOOD COUNT (AUTO) 6.5 K/uL (3.8-11.8)
[2020-08-27] MEDS ORDERED: MORPHINE SULFATE 4 MG/1 ML DISP.SYRIN IV PRN (07:15)
[2020-08-27 07:28] LABS: CREATININE 1.1 mg/dL (0.6-1.3); MAGNESIUM 2.5 mg/dL (1.8-2.4); POTASSIUM 3.7 mmol/L (3.5-5.1)
--- NOTE | 2020-08-27 07:46 | NUR ---
Pt sleeping in bed, arousable to name and touch, no s/s of respiratory distress, no pain or discomfort noted at this time. Pt on room air saturating 98%. IVF infusing well. Safety measures maintained, 1:1 sitter at bedside. all needs attended. Patient was seen by the person in charge for the MRCP w/o contrast today. MRCP is cancelled. Endorsed to receiving nurse to inform Dr. Mederos.
[2020-08-27 08:22] VITALS: BP 149/71
--- NOTE | 2020-08-27 10:49 | NUR ---
WOUND CARE CONSULT: PT SEEN FOR RT ELBOW ABRASION AND RT FOOT BULLAE, PRESENT ON ADMISSION. RECOMMENDATIONS MADE FOR SKIN PROTECTION AND WOUND CARE FOR ELBOW. DISCUSSED WITH NURSING STAFF. PT PREVIOUSLY SEEN BY DR MAR (PREVIOUS ADMISSION). ORDERS RECEIVED FOR RT FOOT WOUND CARE FROM DR MAR. DISCUSSED WITH NURSING STAFF. IN AGREEMENT WITH PLAN OF CARE. Addendum: 08/27/20 at 1051 by MIRIAM PERDUE RN Amended: Links added.
[2020-08-27] MEDS ORDERED: OLANZAPINE ZYDIS 5 MG TAB.RAPDIS PO ONE (11:45)
--- NOTE | 2020-08-27 11:46 | NUR ---
REMY GPS Transfer Note and Discharge Plan: Patient was discharged from MHU to the medical floor with diagnosis of Hypernatremia and intractable pain. Per Dr Preston, patient will remain a 5250 hold for GD and DTO. Patients discharge plan from the hospital is to [facility] [address] [facility] [address] ([phone]). [facility] ([phone]) will provide transportation for the patient upon discharge from the hospital. Patients friend, Nick ([phone]) and brother Earnest ([phone]) are both aware and agreeable with discharge plan. Patient presents alert and oriented x2 and is aware and agreeable with discharge plan. Patient denies suicidal or homicidal ideation. Patient presents with withdrawn mood and congruent affect. Patient is unable to provide care for herself however is willing to accept care provided for her at the facility. Patient will be following up with primary care physician Dr. Vivian Banuelos [address] [place] [address] ([phone]) at the facility and will be referred for psychiatrist follow up upon assessment. Primary physician will manage patients psychotropic medications. Patient will need to sign the homeless waiver upon discharge and provide a copy in the chart. Homeless resources must be provided including 211 information line for shelters and homeless resources. A copy of all resources given to patient also need to be placed in the chart.
[2020-08-27] MEDS ORDERED: MORPHINE SULFATE 2 MG/1 ML DISP.SYRIN IV PRN (12:30)
[2020-08-27 15:32] VITALS: BP 109/61
--- NOTE | 2020-08-27 18:36 | NUR ---
pt continue with 1:1 sitter for safety and ADL support, she had MRI MRCP done, called Nick Pereyra, her partner for consent at [phone], administered with ativan and zofran for anxiety and comfort before sending her to [facility]. zyprexia was not administered since the pt was on her way to procedure when ordered was entered. d/c new order of hida scan since the pt is constantly agitated. will continue to monitor pt
[2020-08-27] MEDS: IV D5W 1000ML 1,000 ML IV PRN (19:58)
[2020-08-27 20:08] VITALS: BP 135/68
[2020-08-27] MEDS: ENOXAPARIN SODIUM 40 MG/0.4 ML DISP.SYRIN SQ SCH (20:33)
[2020-08-28 04:23] VITALS: BP 132/70
[2020-08-28] MEDS: LORAZEPAM 2 MG/1 ML VIAL IV PRN ×2 (04:27→15:31)
--- NOTE | 2020-08-28 04:43 | NUR ---
Pt was very restless and fighting with staff throughout the night. Tried to kick and bite sitter and also tried to pull out IV and get out of bed. Mittens were ordered for patient's safety. She was still very restless around 0230H and was given Ambien. Pts insomnia and restlessness was not corrected so around 0430H another dose of 1mg Ativan was given to patient. She is slightly less restless now. Sitter is at bedside. Pt kept NPO past midnight for HIDA scan ordered for today. IV site patent. Bed is locked and in lowest position, call light is within reach. No other issues or concerns at this time, will endorse to day shift.
[2020-08-28 06:27] LABS: BASOPHILS % (AUTO) 0.3 % (0.0-2.0); EOSINOPHILS # (AUTO) 0.1 K/uL (0.0-0.7); EOSINOPHILS % (AUTO) 1.3 % (0.0-7.0); HEMATOCRIT 40.1 % (31.2-41.9); HEMOGLOBIN 13.2 g/dL (10.9-14.3); LYMPHOCYTES # (AUTO) 1.4 K/uL (20.0-40.0); LYMPHOCYTES % (AUTO) 21.3 % (20.5-51.5); MEAN CORPUSCULAR HEMOGLOBIN 29.7 uug (24.7-32.8); MEAN CORPUSCULAR HGB CONC 33 g/dL (32.3-35.6); MEAN CORPUSCULAR VOLUME 90.3 fL (75.5-95.3); MONOCYTES # (AUTO) 0.5 K/uL (2.0-10.0); MONOCYTES % (AUTO) 7.7 % (0.0-11.0); NEUTROPHILS # (AUTO) 4.7 K/uL (1.8-8.9); NEUTROPHILS % (AUTO) 69.4 % (38.5-71.5); PLATELET COUNT (AUTO) 198 K/uL (179-408); RED BLOOD CELL COUNT(AUTO) 4.44 MIL/uL (3.63-4.92); WHITE BLOOD COUNT (AUTO) 6.7 K/uL (3.8-11.8)
[2020-08-28 06:52] LABS: BILIRUBIN,DIRECT 0.2 mg/dL (0.0-0.2); BILIRUBIN,TOTAL 0.4 mg/dL (0.2-1.0); MAGNESIUM 2.4 mg/dL (1.8-2.4); POTASSIUM 3.4 mmol/L (3.5-5.1); TOTAL PROTEIN, SERUM 5.9 g/dL (6.4-8.2)
[2020-08-28 08:16] VITALS: BP 123/64
[2020-08-28] MEDS ORDERED: POTASSIUM CHLORIDE 20 MEQ POWDER PACKET PO ONE (09:30)
[2020-08-28] MEDS: IV D5W 1000ML 1,000 ML IV PRN (11:21)
--- NOTE | 2020-08-28 15:35 | NUR ---
pt is hitting the sitter biting and kicking per Md orders Ativan 1mg iv given
[2020-08-28 16:13] VITALS: BP 121/50
[2020-08-28] MEDS ORDERED: QUETIAPINE FUMARATE 25 MG TABLET PO PRN (17:00)
[2020-08-28] MEDS: ENSURE ENLIVE (VAN) 240 ML LIQUID PO SCH (17:31)
[2020-08-28 20:00] VITALS: BP 105/56
[2020-08-28] MEDS: ENOXAPARIN SODIUM 40 MG/0.4 ML DISP.SYRIN SQ SCH (20:48)
[2020-08-29] MEDS: IV D5W 1000ML 1,000 ML IV PRN (06:19)
[2020-08-29 06:44] VITALS: BP 118/64
--- NOTE | 2020-08-29 06:46 | NUR ---
Pt slept through the night. Pt was cooperative. No s/s of acute distress or pain. V/S stable on room air. Sitter on the bedside. Safety measures in place. Call light within reach. Will endorse to oncoming nurse.
--- NOTE | 2020-08-29 07:30 | NUR ---
Received change of shift report from night nurse. Pt awake alert and orientedx2, pt confused has a 1:1 sitter at bedside. pt on room air, no signs of distress, no reports of pain noted at this time. pt has a right foot bullae that is open to air and a right elbow abrasion that is covered with dressing. pt able to walk with assistance, BRP, IV access on the right AC 22g D5W at 80cc. bed in low and locked position, safety and fall precautions in place. Will continue to monitor.
[2020-08-29 07:38] VITALS: BP 129/70
[2020-08-29] MEDS: ENSURE ENLIVE (VAN) 240 ML LIQUID PO SCH ×3 (08:15→17:05)
[2020-08-29 08:31] LABS: BASOPHILS % (AUTO) 0.5 % (0.0-2.0); EOSINOPHILS # (AUTO) 0.1 K/uL (0.0-0.7); HEMATOCRIT 41.4 % (31.2-41.9); HEMOGLOBIN 13.5 g/dL (10.9-14.3); LYMPHOCYTES # (AUTO) 1.2 K/uL (20.0-40.0); LYMPHOCYTES % (AUTO) 16.8 % (20.5-51.5); MEAN CORPUSCULAR HEMOGLOBIN 29.2 uug (24.7-32.8); MEAN CORPUSCULAR HGB CONC 33 g/dL (32.3-35.6); MEAN CORPUSCULAR VOLUME 89.3 fL (75.5-95.3); MONOCYTES # (AUTO) 0.5 K/uL (2.0-10.0); MONOCYTES % (AUTO) 6.8 % (0.0-11.0); NEUTROPHILS # (AUTO) 5.4 K/uL (1.8-8.9); NEUTROPHILS % (AUTO) 74.9 % (38.5-71.5); PLATELET COUNT (AUTO) 208 K/uL (179-408); RED BLOOD CELL COUNT(AUTO) 4.64 MIL/uL (3.63-4.92); WHITE BLOOD COUNT (AUTO) 7.2 K/uL (3.8-11.8)
[2020-08-29 08:41] LABS: CREATININE 0.9 mg/dL (0.6-1.3); POTASSIUM 3.9 mmol/L (3.5-5.1)
[2020-08-29 09:32] LABS: BILIRUBIN,DIRECT 0.1 mg/dL (0.0-0.2); BILIRUBIN,TOTAL 0.4 mg/dL (0.2-1.0); TOTAL PROTEIN, SERUM 6.1 g/dL (6.4-8.2)
[2020-08-29] MEDS: LORAZEPAM 2 MG/1 ML VIAL IV PRN (16:03)
[2020-08-29 16:32] VITALS: BP 110/74
--- NOTE | 2020-08-29 17:40 | NUR ---
pt discharged to board and care at [facility]. pt vitals BP 110/74, resp 18, pulse 94, temp 97.2. pt on room air, no signs of distress, no reports of pain, all medications given as ordered. pt uncooperative, and agitated, refused to have pictures taken, IV and ID band removed prior to discharge. pt left via wheelchair, dressing on the foot and the elbow. pt left with all belongings, and paperwork given to facility transport.
[2020-08-29] MEDS ORDERED: QUETIAPINE FUMARATE 25 MG TABLET PO SCH (21:00)
== END 2020-08-29 17:40 | DRG 640 ==
LOC: MEDSURG3 21:44
PROVIDERS: ADMIT Nurse Practitioner Family; ATTEND Nurse Practitioner Family
DX: E87.0 Hyperosmolality and hypernatremia (principal); N17.0 Acute kidney failure with tubular necrosis; F05 Delirium due to known physiological condition; F23 Brief psychotic disorder; E86.0 Dehydration; K82.8 Other specified diseases of gallbladder; B35.1 Tinea unguium; F03.90 Unspecified dementia, unspecified severity, without behavioral disturbance, psychotic disturbance, mood disturbance, and anxiety; I10 Essential (primary) hypertension; Z59.0 Homelessness; R74.01 Elevation of levels of liver transaminase levels; F01.50 Vascular dementia, unspecified severity, without behavioral disturbance, psychotic disturbance, mood disturbance, and anxiety; R23.8 Other skin changes; K83.8 Other specified diseases of biliary tract
CPT/HCPCS: 36415; 71045; 74181; 83690; 83735; 85025; A4663; G0378; J1650; J2060; J2405; J7042; J7070